=== PATIENT | female | born 1945 | race Caucasian/White ===

== ENCOUNTER → 2016-02-28 | Outpatient (CLI) | payer MEDICARE, OTHER ==
--- NOTE | 2016-02-28 15:36 | MAM ---
EXAM DESCRIPTION: MAMMO BREAST SCREENING BILATERAL CAD, images were reviewed with CAD technology, R2 computer-aided detection. CLINICAL HISTORY: [facility]. COMPARISON: 2012 and 2014. FINDINGS: Routine views are obtained. Scattered glandular contour. There is a suspected increasing mammographic asymmetry in the medial right breast, questioned at 4 o'clock. no associated architectural distortion or clustered microcalcifications are seen. No mammographic abnormality on the left.. IMPRESSION: Incomplete study. Questioned increasing focal asymmetry right breast 4 o'clock. BIRAD CATEGORY: 0 INCOMPLETE RECOMMENDATIONS: FOLLOW-UP: Additional mammographic views right breast with true lateral and spot compression films in the true lateral and craniocaudal projections. Directed ultrasound if indicated clinically. According to the [employer], yearly mammograms are recommended starting at age 40 and continuing as long as a woman is in good health. Any breast change noted on a breast self-exam should be reported promptly to the patient's healthcare provider. Breast MRI is recommended for women with an approximately 20-25% or greater lifetime risk of breast cancer, including women with a strong family history of breast or ovarian cancer and women who have been treated for Hodgkin's disease. Electronically signed by: Juliana Santos 02/28/2016 15:34
== END ==
LOC: MAMMO 08:30
PROVIDERS: ATTEND Family Medicine
DX: Z12.31 Encounter for screening mammogram for malignant neoplasm of breast (principal)
CPT/HCPCS: 77052; G0202

== ENCOUNTER → 2016-07-19 | Outpatient (CLI) | payer MEDICARE, OTHER | END | disposition home or self-care (01) | LOC: GMAB 11:34 | PROVIDERS: ATTEND Family Medicine | DX: E03.8 Other specified hypothyroidism (principal); E01.8 Other iodine-deficiency related thyroid disorders and allied conditions ==

== ENCOUNTER → 2017-01-15 | Outpatient (CLI) | payer MEDICARE, OTHER | END | disposition home or self-care (01) | LOC: GMAB 10:51 | PROVIDERS: ATTEND Family Medicine | DX: E01.8 Other iodine-deficiency related thyroid disorders and allied conditions (principal); E03.8 Other specified hypothyroidism; N39.0 Urinary tract infection, site not specified; E53.8 Deficiency of other specified B group vitamins ==

== ENCOUNTER → 2017-01-22 | Outpatient (CLI) | payer MEDICARE, OTHER ==
--- NOTE | 2017-01-23 04:14 | CT ---
EXAM DESCRIPTION: Chest w/Contrast CLINICAL HISTORY: COUGH COMPARISON: None. TECHNIQUE: Axial CT images of the chest were acquired after the administration of intravenous contrast. Coronal and sagittal reconstructions were obtained. This exam was performed according to our departmental dose-optimization program which includes use of Automated Exposure Control, adjustment of the mA and/or kV according to patient size and/or use of iterative reconstruction technique. FINDINGS: Neck base: Unremarkable. Mediastinum: Unremarkable. Lymph Nodes: No lymphadenopathy. Heart and pericardium: Unremarkable. Aorta: Ectatic ascending thoracic aorta measuring 4 cm. Mild calcific atherosclerosis. Pulmonary Artery: No central pulmonary embolism. Central Airways: Patent. Pleura: No pneumothorax or pleural effusion. Lungs: Mild biapical scarring. No suspicious pulmonary nodules or masses. Upper abdomen: Unremarkable. Bones and soft tissues: No acute osseous or soft tissue abnormalities. IMPRESSION: No acute intrathoracic abnormality. Ectatic ascending thoracic aorta measuring 4 cm. Electronically signed by: Aram Thomas MD 01/23/2017 4:13 AM [facility]
== END | disposition home or self-care (01) ==
LOC: CT 10:23
PROVIDERS: ATTEND Family Medicine
DX: R05 Cough (principal)

== ENCOUNTER → 2017-03-14 | Outpatient (CLI) | payer MEDICARE ==
--- NOTE | 2017-03-15 12:07 | US ---
THYROID ULTRASOUND CLINICAL INFORMATION: Nontoxic single thyroid Nodule.. TECHNIQUE: Trans-Cutaneous scanning, two-dimensional and Doppler modes. COMPARISON: Baseline study at this facility. FINDINGS: Thyroid size: Right lobe 4.6 x 1.7 x 1.0 cm. Left lobe 4.7 x 1.6 x 1.3 cm. Isthmus 2 mm. Texture: Heterogeneous. Estimated total number of nodules >/=1 cm: 2 Number of spongiform nodules >/=2 cm not described below (TR1): 0 Number of mixed cystic and solid nodules >/=1.5 cm not described below (TR2): 0 1. Nodule #: 1: Maximum size: 2.3 cm; All dimensions 1.1 x 1.1 cm Location: left; mid Composition: solid/almost completely solid (2) . Posterior acoustic shadowing Echogenicity: hypoechoic (2). Shape: not [id number] (0) Margins: smooth (0) Echogenic foci: punctate echogenic foci (3) ACR TI-RADS total points: 7. ACR TI-RADS risk category: TR5 (>/=7 points) Baseline study at this facility. Significant Change in size (>/= 20% in two dimensions and minimal increase of 2 mm): No Change in features: No Change in ACR TI-RADS risk category: No ACR TI-RADS recommendation: Ultrasound-guided fine needle aspiration. 2. Nodule #: 2: Maximum size: 1.1 cm; All dimensions 0.7 x 0.5 cm Location: right; mid Composition: solid/almost completely solid (2). No demonstrable posterior features. Echogenicity: hypoechoic (2). Shape: not [id number]-delt (0) Margins: smooth (0) Echogenic foci: none (0) ACR TI-RADS total points: 4. ACR TI-RADS risk category: TR4 (4-6 points) Baseline study at this facility. Significant change in size (>/= 20% in two dimensions and minimal increase of 2 mm): No Change in features: No Change in ACR TI-RADS risk category: No ACR TI-RADS recommendation: Follow-up ultrasound in 1 year. IMPRESSION: 1. 2.3 cm almost solid nodule with punctate calcifications in the mid left lobe with ACR TI RADS risk category TR 5. Ultrasound-guided fine-needle aspiration and sampling should be considered. Please see below.* 2. 1.1 cm almost solid nodule in the right lobe with ACR BI-RADS risk category TR 4. Due to size less than 1.5 cm, follow-up ultrasound in one year is recommended. Please see below.* 3. No peripheral neck soft tissue masses or cysts. ACR TI-RADS recommendations: TR5 (>/=7 points) - FNA if >/=1 cm, follow-up if 0.5 - 0.9 cm every year for 5 years TR4 (4-6 points) - FNA if >/=1.5 cm, follow-up if 1 - 1.4 cm in 1, 2, 3 and 5 years TR3 (3 points) - FNA if >/=2.5 cm, follow -up if 1.5 - 2.4 cm in 1, 3 and 5 years TR2 (2 points) and TR1 (0 points) - No FNA or follow-up * ACR TI-RADS recommends that no more than two nodules with the highest ACR TI-RADS total point should be biopsied and no more than four nodules should be followed. Electronically signed by: Nigel Galeana MD 03/15/2017 12:06 PM [facility]
== END ==
LOC: US 08:59
PROVIDERS: ATTEND Family Medicine
DX: E04.1 Nontoxic single thyroid nodule (principal)

== ENCOUNTER → 2017-09-28 | Outpatient (CLI) | payer MEDICARE ==
--- NOTE | 2017-10-01 15:32 | US ---
US THYROID CLINICAL STATEMENT: NONTOXIC MULTINODULAR GOITER. COMPARISON: Thyroid ultrasound 03/14/2017. FINDINGS: Size right thyroid lobe: 5.0 x 1.5 x 1.3 cm Size left thyroid lobe: 4.4 x 1.6 x 1.5 cm Size isthmus: 0.33 cm Estimated total number of nodules greater than or equal to 1 cm: 2 Nodule 1: Size: 2.3 x 1.4 x 1.1 cm Location: Left Mid Composition: solid or almost completely solid: 2 points Echogenicity: hypoechoic: 2 points Shape: wider than tall: 0 points Margins: smooth: 0 points. Echogenic foci: punctate echogenic foci: 3 points ACR Total Points: >/= 7; ACR TI-RADS risk category: TR5 - highly suspicious nodule.. Stable size and appearance since the prior study. Stable ACR TI-RADS points and risk category. Nodule 2: Size: 1.7 x 0.9 x 0.6 cm Location: Right Lower Composition: solid or almost completely solid: 2 points Echogenicity: hypoechoic: 2 points Shape: wider than tall: 0 points Margins: smooth: 0 points Echogenic foci: none: 0 points ACR Total Points: 4; ACR TI-RADS risk category: TR4 - moderately suspicious nodule... Longest axis was 1.2 cm on the prior study. Stable appearance since the prior study. Stable number of ACR points and ACR TI-RADS risk category since the prior study. Soft tissues around the thyroid gland: No distinct solid mass or cyst. No large calcifications or parenchymal edema. No overlying skin changes. No abnormal vascularity. IMPRESSION: 1. Nodule 1: ACR TI-RADS 2017 Category 5. Recommend: Ultrasound-guided fine needle aspiration . This is repeat of prior recommendations. Please see below.* 2. Nodule 2: ACR TI-RADS 2017 Category 4. Recommend: Ultrasound-guided fine needle aspiration . This represents an upgrade of recommendations since the prior study. Please see below.* Soft tissue around the thyroid gland is unremarkable. *ACR TI-RADS 2017 Recommendations: TR1: No FNA or follow up TR2: No FNA or follow up TR3: FNA if >/= 2.5 cm, follow up if 1.5 - 2.4 cm in 1, 3, and 5 years TR4: FNA if >/= 1.5 cm, follow up if 1.0 - 1.4 cm in 1, 2, 3, and 5 years TR5: FNA if >/= 1.0 cm, follow up if 0.5 - 0.9 cm every year for 5 years ACR TI-RADS recommends that no more than two nodules with the highest ACR TI-RADS total point should be biopsied and no more than four nodules should be followed. Electronically signed by: Nigel Galeana MD 10/01/2017 3:31 PM CDT
== END ==
LOC: US 08:55
PROVIDERS: ATTEND Internal Medicine
DX: E04.2 Nontoxic multinodular goiter (principal)

== ENCOUNTER → 2018-03-01 | Outpatient (CLI) | payer MEDICARE | LOC: GMAE 11:19 | PROVIDERS: ATTEND Family Medicine | DX: E03.8 Other specified hypothyroidism (principal) ==

== ENCOUNTER → 2018-10-09 | Outpatient (CLI) | payer MEDICARE ==
--- NOTE | 2018-10-10 19:43 | MAM ---
EXAM DESCRIPTION: 3D Screening BILATERAL : Digital Mammography. CLINICAL HISTORY: 73 years Female ANNUAL SCREENING patient did not return to this facility for follow-up of BI-RADS 0 focal asymmetry right breast. No complaints. No personal or family history of breast cancer. Childbirth. Postmenopausal. Currently on HRT. Lifetime risk of developing breast cancer (Tyrer-Cuzick model)(%): 4.7. COMPARISON: 2-D digital screening bilateral mammography 02/28/2016. TECHNIQUE: Bilateral CC and MLO projection full-field images, digital tomosynthesis mammographic technique. Bilateral digital 2-D full-field MLO images. CAD not available for tomosynthesis or 2-D images. FINDINGS: The breast parenchymal density pattern is: Scattered areas of fibroglandular density. No skin thickening or nipple retraction. The focal asymmetry previously visualized in the lower inner quadrant of the mid right breast is no longer visualized. Left axillary lymph node. Densest tissue is primarily retroareolar bilaterally.. No new focal, stellate mass or density, focal asymmetry , and no suspicious microcalcifications bilaterally. Stable mammograms compared to prior study. Taking into account, differences in mammographic technique. IMPRESSION: Benign exam. BIRAD CATEGORY: 2 BENIGN FINDINGS. RECOMMENDATIONS: FOLLOW UP: Routine digital bilateral mammographic screening, one year interval from October 2018. Written communication explaining the IMPRESSION and follow-up, will be mailed to the patient and referring health care provider. According to the [employer], yearly mammograms are recommended starting at age 40 and continuing as long as a woman is in good health. Any breast change noted on a breast self-exam should be reported promptly to the patient's healthcare provider. Breast MRI is recommended for women with an approximately 20-25% or greater lifetime risk of breast cancer, including women with a strong family history of breast or ovarian cancer and women who have been treated for Hodgkin's disease. A negative mammographic report should not delay tissue diagnosis in patients with significant clinical history or physical findings. Extremely dense breast tissue limits the sensitivity of digital mammography. Electronically signed by: Nigel Galeana MD 10/10/2018 7:41 PM CDT
== END ==
LOC: MAMMO 09:00
PROVIDERS: ATTEND Family Medicine
DX: Z12.31 Encounter for screening mammogram for malignant neoplasm of breast (principal)

== ENCOUNTER → 2019-07-03 | Outpatient (CLI) | payer MEDICARE | LOC: GMAE 11:20 | PROVIDERS: ATTEND Family Medicine | DX: E03.8 Other specified hypothyroidism (principal); I10 Essential (primary) hypertension; E78.2 Mixed hyperlipidemia ==

== ENCOUNTER → 2019-08-20 | Outpatient (CLI) | payer MEDICARE, OTHER ==
--- NOTE | 2019-08-20 19:29 | CT ---
Procedure: CT LUNG SCREENING Exam Date: August 20, 2019. Ordering Provider: Arnav Lewis Clinical Indication: PERSONAL HISTORY OF NICOTINE DEPENDENCE . Smoking cessation x11 years. 30 pack years. This patient meets eligibility criteria for low-dose CT lung cancer screening. Comparison: CT scan of the chest with IV contrast January 2017. Technique: Using a multislice scanner, sequential helical axial imaging was obtained in the thorax, 2.5 mm thickness, 2.5 mm separation, from the level of the thoracic inlet through the lung bases without IV contrast. A low dose protocol was utilized for BMI less than 30: BMI: 25.5. CTDI: 1.76 mGy. 120. kVp. 45 mA. DLP 56 mGy-cm. 2D sagittal and coronal reconstructed images, 6.0 mm thickness, were obtained. This exam was performed according to our departmental dose optimization program which includes use of automated exposure control, adjustment of the mA and/or kV according to patient size and/or use of iterative reconstruction technique. Nodule measurements under 10 mm are given as mean value of 3 axes diameters. FINDINGS: Lungs and large airways: Bilateral parenchymal blebs in a centrilobular distribution predominantly upper lobes. Stable since the prior study. Subpleural 3 mm nodule posterior left apex abutting the pleura is stable. Minimal pleural-parenchymal scarring in the inferior lingula, right middle lobe, and bilateral lower lobes with minimal posterior dependent atelectasis abutting the posterior pleura bilaterally. No abnormal nodule and no mass. No focal or new infiltrates. Pleural And space: Bilateral apical pleural thickening more on the right stable. Acute changes. Mediastinum and mason: evaluation limited by low dose technique and lack of IV contrast. Small lymph nodes with no dominant soft tissue mass. Heart and great vessels: Trace calcification left main coronary artery. Also calcification in the proximal right subclavian artery, aortic arch and descending thoracic aorta. Minimal ectasia of the ascending aortic arch. Chest wall, lower neck, axillae: Evaluation also limited by same factors as described above. Unremarkable. Upper abdomen: Evaluation limited by low-dose technique. Included spleen liver and other abdominal organs are unremarkable. No free air or free fluid. Osseous structures: Evaluation limited by low dose MIP technique. Minimal spondylosis and scoliosis of the thoracic spine. IMPRESSION: 1. Minimal emphysematous changes. Pleural parenchymal scarring. Minimal pleural thickening. No abnormal nodule and no mass. No focal or new infiltrate. Stable since the prior study, considering differences in technique. [facility] Best Practice Recommendations: please see below for Lung RADS category and FOLLOW-UP.* *Lung RADS category Category 1 - No nodule or definitely benign nodules (probability of malignancy less than 1%). Follow-up: Continue annual screening with Low Dose Chest CT in 12 months. Electronically signed by: Nigel Galeana MD 08/20/2019 7:28 PM CDT
== END ==
LOC: CT 10:00
PROVIDERS: ATTEND Family Medicine
DX: Z87.891 Personal history of nicotine dependence (principal); J43.9 Emphysema, unspecified; J98.4 Other disorders of lung

== ENCOUNTER → 2019-12-03 | Outpatient (CLI) | payer MEDICARE, OTHER ==
--- NOTE | 2019-12-03 10:04 | RAD ---
EXAM DESCRIPTION: Ankle,Right 3 Views CLINICAL HISTORY: 74 years, Female, ANKLE PAIN RIGHT COMPARISON: None. TECHNIQUE: Three views right ankle FINDINGS: Three views right ankle demonstrates no abnormal soft tissue swelling and preserved ankle mortise. Mild degenerative irregularity at the tip of the lateral and medial malleolus noted. No fracture or dislocation is seen. Mild plantar and minimal posterior calcaneal spurring evident. Advanced hypertrophic and degenerative changes at the talonavicular articulation anteriorly, best appreciated on the lateral view with hypertrophic bony changes along the dorsum of the articular surface evident. This is unrelated to the ankle mortise. IMPRESSION: 1. Essentially normal ankle mortise without fracture or dislocation or significant degenerative changes. 2. Hypertrophic changes and bone on bone degenerative changes at the talonavicular articulation particularly on the dorsal surface anterior to the ankle mortise. Electronically signed by: Duc Gayle MD 12/03/2019 10:02 AM CDT
== END ==
LOC: RAD 09:35
PROVIDERS: ATTEND Orthopaedic Surgery
DX: M19.071 Primary osteoarthritis, right ankle and foot (principal)